=== PATIENT | female | born 1985 | race Caucasian/White ===

== ENCOUNTER 2020-11-30 22:35 | Emergency (ER) | payer OTHER ==
[2020-12-01] MEDS ORDERED: NAPROSYN500 MG PO (13:13)
[2020-12-01] MEDS ORDERED: HYDROCODON-ACE1 EAC4 PO (13:18)
== END 2020-12-01 01:00 | disposition left against medical advice (07) ==
LOC: ER1 22:35
DX: Z53.21 Procedure and treatment not carried out due to patient leaving prior to being seen by health care provider (principal)
CPT/HCPCS: 73110

== ENCOUNTER 2020-12-01 10:38 | Emergency (ER) | payer OTHER ==
[2020-12-01] MEDS ORDERED: NAPROSYN500 MG PO (13:13)
[2020-12-01] MEDS ORDERED: HYDROCODON-ACE1 EAC4 PO (13:18)
== END 2020-12-01 13:23 | disposition home or self-care (01) ==
LOC: ER1 10:38
DX: S52.531A Colles' fracture of right radius, initial encounter for closed fracture (principal); S53.401A Unspecified sprain of right elbow, initial encounter; W10.9XXA Fall (on) (from) unspecified stairs and steps, initial encounter; Y92.009 Unspecified place in unspecified non-institutional (private) residence as the place of occurrence of the external cause
CPT/HCPCS: 29125; 73080; 99283